=== PATIENT | male | born 1980 | race Caucasian/White ===

== ENCOUNTER 2018-12-07 09:14 | Day surgery (SDC) | payer BC ==
[~2018-12-07] VITALS: Ht 172.7 cm; Wt 123.3 kg
[2018-12-07 09:46] VITALS: BP 142/96; PULSE 76; TEMP 97.7
[2018-12-07] MEDS ORDERED: BENICAR 20MG TA20 MG PO (09:54)
[2018-12-07] MEDS ORDERED: CYTOMEL 2525 MCG/TAB PO (09:55)
--- NOTE | 2018-12-07 09:55 | NUR ---
TO RM AT 0930- CALL LIGHT IN REACH AT BEDSIDE.
[2018-12-07 10:55] VITALS: BP 130/81; PULSE 85; TEMP 97.4
--- NOTE | 2018-12-07 10:55 | NUR ---
to bay [facility] via cart from endo room, pt walked to chair, in room, takes water and call light in reach
[2018-12-07 11:10] VITALS: BP 131/70; PULSE 79
[2018-12-07 11:25] VITALS: BP 113/57; PULSE 72
--- NOTE | 2018-12-07 11:25 | NUR ---
dr martinez see pt and . reviewed discharge inst. with pt with verbal understanding, pt will return 3 years, office will call results of biopsy. reviewed activity and precautions also with verbal understanding. int d'cd
--- NOTE | 2018-12-07 11:40 | NUR ---
pt up and dressed in room, disharaged via w/c to car with
== END 2018-12-07 11:40 | disposition home or self-care (01) ==
LOC: SDCO 09:14
DX: Z12.11 Encounter for screening for malignant neoplasm of colon (principal); D12.2 Benign neoplasm of ascending colon; K57.30 Diverticulosis of large intestine without perforation or abscess without bleeding; I10 Essential (primary) hypertension; Z80.0 Family history of malignant neoplasm of digestive organs; Z83.71 Family history of colonic polyps
CPT/HCPCS: OP; J2250; J2405; J3010; J7030